=== PATIENT | female | born 1960 | race Hispanic/Latino ===

== ENCOUNTER → 2020-07-21 | Outpatient (CLI) | payer OTHER | END | disposition home or self-care (01) | LOC: OIH 13:45 | PROVIDERS: ATTEND Internal Medicine | DX: M19.071 Primary osteoarthritis, right ankle and foot (principal); M19.072 Primary osteoarthritis, left ankle and foot; M19.041 Primary osteoarthritis, right hand; M19.042 Primary osteoarthritis, left hand; M85.871 Other specified disorders of bone density and structure, right ankle and foot; M77.32 Calcaneal spur, left foot; M77.31 Calcaneal spur, right foot | CPT/HCPCS: 73630 ==

== ENCOUNTER 2024-02-21 10:21 | Day surgery (SDC) | payer OTHER, MEDICARE ==
[2024-02-21] VITALS (11 sets, daily range): BP systolic 90–149; BP diastolic 43–77; PULSE 59–73; RESP 15–18; TEMP 96.6–97.6
[~2024-02-21] VITALS: Ht 149.9 cm; Wt 61.2 kg
[~2024-02-21 10:21] MED LIST: ASPI-1197 PO; ATOR10 PO; BUSP15 PO; ERGO50CA PO; FERR-63 PO; FOLI0.8C PO; HYDR-4060 PO; INFL100I INJ; ISOS30TA92 PO; LINA145C PO; METH2.5T6 PO; METO-408 PO; PANT40TA54 PO; PRED5TAB PO; SERT-438 PO
[2024-02-21] MEDS: 0.9%NACL 1000ML 1,000 ML IV ONE (11:23)
[2024-02-21] MEDS ORDERED: proPOFol 10 MG/ML 20ML VIAL IV ONE (12:46)
== END 2024-02-21 14:33 | disposition home or self-care (01) ==
LOC: DAH 10:21
PROVIDERS: ATTEND Internal Medicine Gastroenterology
DX: D50.9 Iron deficiency anemia, unspecified (principal); D12.8 Benign neoplasm of rectum; K57.30 Diverticulosis of large intestine without perforation or abscess without bleeding; R19.5 Other fecal abnormalities; R93.3 Abnormal findings on diagnostic imaging of other parts of digestive tract; K44.9 Diaphragmatic hernia without obstruction or gangrene; K59.04 Chronic idiopathic constipation; K64.0 First degree hemorrhoids; K80.20 Calculus of gallbladder without cholecystitis without obstruction; F32.A Depression, unspecified; I10 Essential (primary) hypertension; I25.10 Atherosclerotic heart disease of native coronary artery without angina pectoris; M06.9 Rheumatoid arthritis, unspecified; I25.2 Old myocardial infarction; M81.0 Age-related osteoporosis without current pathological fracture; E78.5 Hyperlipidemia, unspecified; Z95.5 Presence of coronary angioplasty implant and graft; Z96.642 Presence of left artificial hip joint; Z96.659 Presence of unspecified artificial knee joint; Z79.82 Long term (current) use of aspirin; Z79.899 Other long term (current) drug therapy
CPT/HCPCS: 45385; J7030 ×2; J2704; A4620; A4215; A4223; A7002; A4222; A4221; A4663; A4606; J3490

== ENCOUNTER 2024-04-05 06:48 | Day surgery (SDC) | payer OTHER, MEDICARE ==
[2024-04-04 14:30] LABS: BASOPHILS # (AUTO) 0.06 K/uL (0.00-0.20); BASOPHILS % (AUTO) 0.8 % (0.0-5.0); EOSINOPHILS # (AUTO) 0.07 K/uL (0.00-0.70); EOSINOPHILS % (AUTO) 0.9 % (0.0-8.0); IMMATURE GRANULOCYTE ABSOLUTE 0.03 K/uL (0-1); LYMPHOCYTES # (AUTO) 1.3 K/uL (1.0-4.8); LYMPHOCYTES % (AUTO) 16.5 % (21.0-51.0); MEAN CORPUSCULAR HEMOGLOBIN 27.4 pg (27.0-33.0); MEAN CORPUSCULAR HGB CONC 30.7 g/dL (32.0-36.0); MEAN CORPUSCULAR VOLUME 89.4 fL (79-99); MONOCYTES # (AUTO) 0.5 K/uL (0.1-1.0); MONOCYTES % (AUTO) 6.2 % (3.0-13.0); NEUTROPHILS # (AUTO) 5.7 K/uL (1.8-7.7); NEUTROPHILS % (AUTO) 75.2 % (40.0-77.0); PLATELET COUNT (AUTO) 304 K/uL (130-400); RED CELL DISTRIBUTION WIDTH 18.7 % (11.0-15.5); WHITE BLOOD COUNT (AUTO) 7.6 K/uL (4.8-10.8)
[2024-04-04 14:39] LABS: CREATININE 0.6 mg/dL (0.5-1.0); POTASSIUM 4.5 mmol/L (3.5-5.1)
[2024-04-04 15:23] VITALS: BP 128/73; PULSE 64; RESP 18; TEMP 97.8
[2024-04-05] VITALS (21 sets, daily range): BP systolic 132–180; BP diastolic 69–90; PULSE 59–76; RESP 14–22; TEMP 97.1–98.4
[~2024-04-05] VITALS: Ht 149.9 cm; Wt 62.5 kg
[2024-04-05] MEDS: BUPIvacaine/PF 0.25% 30ML VIAL IJ ONE
[~2024-04-05 06:48] MED LIST changes: -ERGO50CA PO; -FERR-63 PO; +FERROUS SULFA PO; -FOLI0.8C PO; -LINA145C PO; +LINA290C PO; -METO-408 PO; +METO25TA6 PO; +MULT-1258 PO; -SERT-438 PO; +SERT-440 PO; +folic acid PO; +vitamin d2 PO
[2024-04-05] MEDS: acetaMINOPHEN 1,000 MG/100 ML VIAL IV ONE (07:14)
[2024-04-05] MEDS: FAMOTIDINE 20MG VIAL IV ONE (07:14)
[2024-04-05] MEDS ORDERED: ketaMINE 50MG/ML SYRINGE 50 MG/ML DISP.SYRIN ONE (07:18)
[2024-04-05] MEDS ORDERED: proPOFol 10 MG/ML 20ML VIAL IV ONE (07:25)
[2024-04-05] MEDS ORDERED: FENTanyl CITRate PF 50 MCG/1 ML 2ML VIAL ONE (07:25)
[2024-04-05] MEDS ORDERED: LIDOCAINE PF 100MG/5ML (2%) SYRINGE 5ML ONE (07:25)
[2024-04-05] MEDS ORDERED: rocuRONium bROMide 10MG/1ML 5ML VL ONE ×2 (07:25→09:50)
[2024-04-05] MEDS ORDERED: hydroCORTisone SOD SUCCINATE 100 MG/2 ML VIAL ONE (07:34)
[2024-04-05] MEDS: INDOCYANINE GREEN 25 MG VIAL IJ ONE (08:20)
[2024-04-05] MEDS ORDERED: dexaMETHasone SOD PHOSPHATE 10MG/ML 1ML VIAL ONE (08:38)
[2024-04-05] MEDS ORDERED: ondanSETRON 4MG INJ ONE (08:38)
[2024-04-05] MEDS: ceFAZolin SODIUM 2 GM VIAL ONE (08:40)
[2024-04-05] MEDS ORDERED: ePHEDrine SULFate 50 MG/ML AMPULE ONE (08:47)
[2024-04-05] MEDS: LACTATED RINGERS 1000ML 1,000 ML IV ONE (09:10)
[2024-04-05] MEDS ORDERED: NEOSTIGMINE METHYLSULFATE 1MG/ML IV ONE (10:46)
[2024-04-05] MEDS ORDERED: GLYCOPYRROLATE 0.2 MG/ML 5 ML VIAL ONE (10:46)
[2024-04-05] MEDS: ondanSETRON 4MG INJ ONE (11:54)
[2024-04-05] MEDS: SUGAMMADEX SODIUM 200 MG/2 ML VIAL IV ONE (11:55)
[2024-04-05] MEDS: hydrALAZine 20MG/ML VIAL ONE (11:55)
== END 2024-04-05 13:30 | disposition home or self-care (01) ==
LOC: DAH 06:48
PROVIDERS: ATTEND Surgery
DX: K80.10 Calculus of gallbladder with chronic cholecystitis without obstruction (principal); K43.9 Ventral hernia without obstruction or gangrene; R06.00 Dyspnea, unspecified; I25.2 Old myocardial infarction; K66.0 Peritoneal adhesions (postprocedural) (postinfection); I10 Essential (primary) hypertension; E78.5 Hyperlipidemia, unspecified; I25.10 Atherosclerotic heart disease of native coronary artery without angina pectoris; M06.9 Rheumatoid arthritis, unspecified; M35.00 Sjogren syndrome, unspecified; F41.9 Anxiety disorder, unspecified; F32.A Depression, unspecified; Z88.5 Allergy status to narcotic agent; Z95.1 Presence of aortocoronary bypass graft; M81.0 Age-related osteoporosis without current pathological fracture; Z96.641 Presence of right artificial hip joint; Z96.659 Presence of unspecified artificial knee joint; Z95.5 Presence of coronary angioplasty implant and graft; Z79.899 Other long term (current) drug therapy
CPT/HCPCS: 80048; 85025; 86850; 86900; 86901; 36415; 93005; 47563; 82948 ×2; 88304; A6260; A4663; J7030; A4215 ×3; J7120; J3490 ×6; J3010; J1100; J0665; J1720; J2003; J0360; J2704; J2405 ×2; J2710; J0690; A4649; A4223; A4222; A4221; A4600